=== PATIENT | male | born 1955 | race Asian ===

== ENCOUNTER 2017-01-01 18:28 | Inpatient (IN) | payer OTHER ==
[~2017-01-01] VITALS: Ht 160 cm; Wt 70.0 kg
[~2017-01-01 18:28] MED LIST: ACLI400A2 IH; ALBU8HFA4 IH; AMLO-511 PO; ASPI81 PO; ATOR20TA86 PO; BUDE10.2 IH; BUME1TAB30 PO; CALC-724 PO; CARV6 PO; DOCU250C91 PO; FAMO20 PO; FISH1CAP22 PO; FLUT16H NASAL; GLIP10 PO; ISOS30TA6 PO; LORA10TA7 PO; MELO-273 PO; METF500T4 PO; MONT10TA21 PO; MULT1TAB70 PO; OMEP20 PO; POTA8TAB4 PO; SACU1TAB PO; TAMS0.4C32 PO; VIT1CAPS21 PO
[2017-01-01 18:46] LABS: GLUCOSE,POINT OF CARE 172 MG/DL (70-110)
[2017-01-01] MEDS ORDERED: ENAL2.5 PO (19:20)
[2017-01-01 21:54] LABS: INFLUENZA TYPE B NEGATIVE FOR TYPE B (NEGATIVE)
[2017-01-01] MEDS ORDERED: IPRATROPIUM BROMIDE 0.5 MG/2.5 ML NEB SOLUTION NEB ONE (22:30)
[2017-01-01] MEDS ORDERED: ALBUTEROL SULFATE 2.5 MG/0.5 ML NEB SOLUTION NEB ONE (22:30)
[2017-01-01] MEDS ORDERED: ACETAMINOPHEN 500 MG TABLET PO ONE (22:30)
[2017-01-01 22:44] LABS: BASOPHILS # (AUTO) 0.06 K/uL (0.00-0.20); BASOPHILS % (AUTO) 0.8 % (0.0-2.0); EOSINOPHILS % (AUTO) 1.34 % (1.0-6.0); HEMATOCRIT 39.3 % (41-53); HEMOGLOBIN 13.1 g/dL (13.5-17.5); LYMPHOCYTES # (AUTO) 1.7 K/uL (1.0-4.8); LYMPHOCYTES % (AUTO) 23.6 % (22.0-44.0); MEAN CORPUSCULAR HEMOGLOBIN 29.6 pg (26.0-34.0); MEAN CORPUSCULAR HGB CONC 33.4 G/dL (31.0-37.0); MEAN CORPUSCULAR VOLUME 89 fL (80-100); MONOCYTES # (AUTO) 1.2 K/uL (0.1-1.0); NEUTROPHILS # (AUTO) 4.1 K/uL (1.8-7.7); NEUTROPHILS % (AUTO) 57.3 % (40.0-70.0); PLATELET COUNT (AUTO) 274 K/uL (150-450); RED BLOOD CELL COUNT(AUTO) 4.43 MIL/uL (4.50-5.90); RED CELL DISTRIBUTION WIDTH 14.6 % (11.5-14.5); WHITE BLOOD COUNT (AUTO) 7.2 K/uL (4.5-11.0)
[2017-01-01] MEDS ORDERED: 0.9% SODIUM CHLORIDE 15 ML NEB SOLUTION NEB ONE (22:47)
[2017-01-01] MEDS ORDERED: OSELTAMIVIR PHOSPHATE 75 MG CAPSULE PO ONE (23:00)
[2017-01-01] MEDS ORDERED: DEXTROSE 50%-WATER 25 GM/50 ML SYRINGE IVP PRN (23:00)
[2017-01-01] MEDS ORDERED: ACETAMINOPHEN 325 MG TABLET PO PRN (23:00)
[2017-01-01] MEDS ORDERED: MAGNESIUM HYDROXIDE SUSPENSION 30 ML UDCUP PO PRN (23:00)
[2017-01-01] MEDS ORDERED: OxyCODONE HCL/ACETAMINOPHEN 5-325 MG TABLET PO PRN (23:00)
[2017-01-01 23:09] LABS: B-TYPE NATRIURETIC PEPTIDE 156 pg/mL (0-100)
[2017-01-01] MEDS ORDERED: CefTRIAXone 1 GM/DEXTROSE 50 ML IV ONE (23:15)
[2017-01-01] MEDS ORDERED: AZITHROMYCIN 500 MG/NS 250 ML IV ONE (23:15)
[2017-01-01 23:19] LABS: ALANINE AMINOTRANSFERASE 17 U/L (12-78); ANION GAP 12 mmol/L (8-16); ASPARTATE AMINOTRANSFERASE 15 U/L (15-37); BILIRUBIN,TOTAL 0.3 mg/dL (0.1-1.0); CALCIUM, TOTAL 8.2 mg/dL (8.8-10.5); CARBON DIOXIDE 30 mmol/L (22-29); CHLORIDE 96 mmol/L (98-107); CREATINE KINASE MB 0.5 ng/mL (0-5); CREATINE KINASE, TOTAL 93 U/L (39-308); CREATININE 0.92 mg/dL (0.60-1.30); GLOMERULAR FILTR. RATE CALC > 60 mL/min (>60); SODIUM SERUM 138 mmol/L (136-145); UREA NITROGEN, BLOOD 10 mg/dL (7-18)
[2017-01-01 23:23] LABS: POTASSIUM 2.7 mmol/L (3.5-5.1)
[2017-01-02] VITALS (7 sets, daily range): BP systolic 115–143; BP diastolic 66–90
[2017-01-02] MEDS ORDERED: POTASSIUM CHLORIDE 20 MEQ ER TABLET PO ONE
[2017-01-02] MEDS: POTASSIUM CHL 10 MEQ/WATER 50 ML IV SCH ×3 (00:33→02:33)
[2017-01-02] MEDS: HEPARIN SODIUM,PORCINE 5,000 UNITS/ML VIAL SQ SCH ×3 (00:33→18:16)
[2017-01-02] MEDS ORDERED: SODIUM CHLORIDE 0.9% 1,000 ML IV ONE (00:47)
[2017-01-02] MEDS ORDERED: 0.9% SODIUM CHLORIDE 5 ML NEB SOLUTION NEB ONE ×3 (03:44→21:24)
[2017-01-02] MEDS: ALBUTEROL SULFATE 2.5 MG/0.5 ML NEB SOLUTION NEB PRN ×3 (03:46→21:32)
[2017-01-02] MEDS: INSULIN ASPART 100 UNITS/ML SQ PRN ×3 (05:51→18:15)
[2017-01-02] MEDS: DOCUSATE SODIUM 100 MG CAPSULE PO SCH ×2 (08:11→20:32)
[2017-01-02] MEDS: LISINOPRIL 5 MG TABLET PO SCH (08:12)
[2017-01-02] MEDS: PANTOPRAZOLE SODIUM 40 MG DR TABLET PO SCH (08:12)
[2017-01-02] MEDS: OSELTAMIVIR PHOSPHATE 75 MG CAPSULE PO SCH ×2 (08:12→20:33)
[2017-01-02] MEDS: CARVEDILOL 6.25 MG TABLET PO SCH ×2 (08:12→20:32)
[2017-01-02] MEDS: ASPIRIN 81 MG CHEWABLE TABLET PO SCH (08:12)
[2017-01-02 13:46] LABS: ANION GAP 10 mmol/L (8-16); CALCIUM, TOTAL 8.1 mg/dL (8.8-10.5); CARBON DIOXIDE 26 mmol/L (22-29); CHLORIDE 101 mmol/L (98-107); CREATININE 0.97 mg/dL (0.60-1.30); GLOMERULAR FILTR. RATE CALC > 60 mL/min (>60); POTASSIUM 3.1 mmol/L (3.5-5.1); SODIUM SERUM 137 mmol/L (136-145); UREA NITROGEN, BLOOD 11 mg/dL (7-18)
[2017-01-02 17:55] LABS: BASOPHILS # (AUTO) 0.03 K/uL (0.00-0.20); BASOPHILS % (AUTO) 0.6 % (0.0-2.0); EOSINOPHILS # (AUTO) 0.27 K/uL (0.00-0.70); EOSINOPHILS % (AUTO) 5.98 % (1.0-6.0); HEMATOCRIT 39.2 % (41-53); HEMOGLOBIN 13.1 g/dL (13.5-17.5); LYMPHOCYTES # (AUTO) 1.7 K/uL (1.0-4.8); LYMPHOCYTES % (AUTO) 38.3 % (22.0-44.0); MEAN CORPUSCULAR HEMOGLOBIN 29.5 pg (26.0-34.0); MEAN CORPUSCULAR HGB CONC 33.3 G/dL (31.0-37.0); MEAN CORPUSCULAR VOLUME 89 fL (80-100); MONOCYTES # (AUTO) 0.8 K/uL (0.1-1.0); NEUTROPHILS # (AUTO) 1.7 K/uL (1.8-7.7); NEUTROPHILS % (AUTO) 37.1 % (40.0-70.0); PLATELET COUNT (AUTO) 270 K/uL (150-450); RED BLOOD CELL COUNT(AUTO) 4.43 MIL/uL (4.50-5.90); RED CELL DISTRIBUTION WIDTH 14.3 % (11.5-14.5); WHITE BLOOD COUNT (AUTO) 4.5 K/uL (4.5-11.0)
[2017-01-02 18:05] LABS: ANION GAP 6 mmol/L (8-16); CALCIUM, TOTAL 8.7 mg/dL (8.8-10.5); CARBON DIOXIDE 31 mmol/L (22-29); CHLORIDE 101 mmol/L (98-107); CREATININE 0.92 mg/dL (0.60-1.30); GLOMERULAR FILTR. RATE CALC > 60 mL/min (>60); POTASSIUM 3.6 mmol/L (3.5-5.1); SODIUM SERUM 138 mmol/L (136-145); UREA NITROGEN, BLOOD 11 mg/dL (7-18)
[2017-01-02 18:10] LABS: ALANINE AMINOTRANSFERASE 19 U/L (12-78); ALBUMIN 3.5 g/dL (3.4-5.0); ASPARTATE AMINOTRANSFERASE 18 U/L (15-37); BILIRUBIN,TOTAL 0.3 mg/dL (0.1-1.0); TOTAL PROTEIN, SERUM 7.2 g/dL (6.4-8.2)
[2017-01-02] MEDS: ATORVASTATIN CALCIUM 20 MG TABLET PO SCH (20:35)
[2017-01-03] MEDS: CefTRIAXone 1 GM/DEXTROSE 50 ML IV SCH ×2 (00:19→23:58)
[2017-01-03 05:16] VITALS: BP 107/74
[2017-01-03 07:32] LABS: BASOPHILS % (AUTO) 0.9 % (0.0-2.0); EOSINOPHILS % (AUTO) 8.6 % (1.0-6.0); HEMATOCRIT 39.6 % (41-53); HEMOGLOBIN 12.9 g/dL (13.5-17.5); LYMPHOCYTES # (AUTO) 1.8 K/uL (1.0-4.8); LYMPHOCYTES % (AUTO) 41.2 % (22.0-44.0); MEAN CORPUSCULAR HEMOGLOBIN 29.3 pg (26.0-34.0); MEAN CORPUSCULAR HGB CONC 32.7 G/dL (31.0-37.0); MEAN CORPUSCULAR VOLUME 90 fL (80-100); MONOCYTES # (AUTO) 0.6 K/uL (0.1-1.0); MONOCYTES % (AUTO) 13.8 % (2.0-9.0); NEUTROPHILS # (AUTO) 1.5 K/uL (1.8-7.7); NEUTROPHILS % (AUTO) 35.5 % (40.0-70.0); PLATELET COUNT (AUTO) 269 K/uL (150-450); RED BLOOD CELL COUNT(AUTO) 4.42 MIL/uL (4.50-5.90); RED CELL DISTRIBUTION WIDTH 14.1 % (11.5-14.5); WHITE BLOOD COUNT (AUTO) 4.3 K/uL (4.5-11.0)
[2017-01-03 07:38] VITALS: BP 107/69
[2017-01-03 08:07] LABS: ALANINE AMINOTRANSFERASE 17 U/L (12-78); ALBUMIN 3.5 g/dL (3.4-5.0); ANION GAP 11 mmol/L (8-16); ASPARTATE AMINOTRANSFERASE 18 U/L (15-37); BILIRUBIN,TOTAL 0.3 mg/dL (0.1-1.0); CALCIUM, TOTAL 8.7 mg/dL (8.8-10.5); CARBON DIOXIDE 27 mmol/L (22-29); CHLORIDE 102 mmol/L (98-107); CREATININE 0.87 mg/dL (0.60-1.30); GLOMERULAR FILTR. RATE CALC > 60 mL/min (>60); SODIUM SERUM 140 mmol/L (136-145); TOTAL PROTEIN, SERUM 7.3 g/dL (6.4-8.2); UREA NITROGEN, BLOOD 10 mg/dL (7-18)
[2017-01-03] MEDS: DOCUSATE SODIUM 100 MG CAPSULE PO SCH ×2 (08:08→20:41)
[2017-01-03] MEDS: AZITHROMYCIN 500 MG/NS 250 ML IV SCH (08:08)
[2017-01-03] MEDS: HEPARIN SODIUM,PORCINE 5,000 UNITS/ML VIAL SQ SCH ×4 (08:08→23:58)
[2017-01-03] MEDS: PANTOPRAZOLE SODIUM 40 MG DR TABLET PO SCH (08:08)
[2017-01-03] MEDS: OSELTAMIVIR PHOSPHATE 75 MG CAPSULE PO SCH ×2 (08:08→20:41)
[2017-01-03] MEDS: ASPIRIN 81 MG CHEWABLE TABLET PO SCH (08:08)
[2017-01-03] MEDS: LISINOPRIL 5 MG TABLET PO SCH (08:15)
[2017-01-03] MEDS: CARVEDILOL 6.25 MG TABLET PO SCH ×2 (08:15→20:41)
[2017-01-03] MEDS: POTASSIUM CHLORIDE 20 MEQ ER TABLET PO PRN (08:31)
[2017-01-03 11:47] VITALS: BP 118/61
[2017-01-03] MEDS: INSULIN ASPART 100 UNITS/ML SQ PRN ×2 (12:11→17:58)
[2017-01-03 15:21] VITALS: BP 132/72
[2017-01-03 17:36] LABS: GLUCOSE,POINT OF CARE 156 MG/DL (70-110)
[2017-01-03 19:41] VITALS: BP 126/83
[2017-01-03] MEDS: ATORVASTATIN CALCIUM 20 MG TABLET PO SCH (20:41)
[2017-01-04 00:08] VITALS: BP 126/76
[2017-01-04 04:46] VITALS: BP 158/112
[2017-01-04] MEDS: INSULIN ASPART 100 UNITS/ML SQ PRN ×2 (05:57→12:03)
[2017-01-04 06:26] LABS: BASOPHILS # (AUTO) 0.04 K/uL (0.00-0.20); BASOPHILS % (AUTO) 0.7 % (0.0-2.0); EOSINOPHILS # (AUTO) 0.47 K/uL (0.00-0.70); EOSINOPHILS % (AUTO) 8.36 % (1.0-6.0); HEMATOCRIT 38.3 % (41-53); HEMOGLOBIN 12.9 g/dL (13.5-17.5); LYMPHOCYTES # (AUTO) 2.3 K/uL (1.0-4.8); LYMPHOCYTES % (AUTO) 39.9 % (22.0-44.0); MEAN CORPUSCULAR HEMOGLOBIN 29.7 pg (26.0-34.0); MEAN CORPUSCULAR HGB CONC 33.6 G/dL (31.0-37.0); MEAN CORPUSCULAR VOLUME 88 fL (80-100); MONOCYTES # (AUTO) 0.5 K/uL (0.1-1.0); MONOCYTES % (AUTO) 8.7 % (2.0-9.0); NEUTROPHILS # (AUTO) 2.4 K/uL (1.8-7.7); NEUTROPHILS % (AUTO) 42.3 % (40.0-70.0); PLATELET COUNT (AUTO) 282 K/uL (150-450); RED BLOOD CELL COUNT(AUTO) 4.35 MIL/uL (4.50-5.90); RED CELL DISTRIBUTION WIDTH 13.7 % (11.5-14.5); WHITE BLOOD COUNT (AUTO) 5.7 K/uL (4.5-11.0)
[2017-01-04 06:57] LABS: ALANINE AMINOTRANSFERASE 19 U/L (12-78); ALBUMIN 3.5 g/dL (3.4-5.0); ANION GAP 14 mmol/L (8-16); ASPARTATE AMINOTRANSFERASE 13 U/L (15-37); BILIRUBIN,TOTAL 0.2 mg/dL (0.1-1.0); CALCIUM, TOTAL 8.7 mg/dL (8.8-10.5); CARBON DIOXIDE 23 mmol/L (22-29); CHLORIDE 104 mmol/L (98-107); CREATININE 0.75 mg/dL (0.60-1.30); GLOMERULAR FILTR. RATE CALC > 60 mL/min (>60); POTASSIUM 3.1 mmol/L (3.5-5.1); SODIUM SERUM 141 mmol/L (136-145); TOTAL PROTEIN, SERUM 7.2 g/dL (6.4-8.2); UREA NITROGEN, BLOOD 14 mg/dL (7-18)
[2017-01-04 07:40] VITALS: BP 130/88
[2017-01-04] MEDS: DOCUSATE SODIUM 100 MG CAPSULE PO SCH (08:05)
[2017-01-04] MEDS: PANTOPRAZOLE SODIUM 40 MG DR TABLET PO SCH (08:05)
[2017-01-04] MEDS: LISINOPRIL 5 MG TABLET PO SCH (08:05)
[2017-01-04] MEDS: CARVEDILOL 6.25 MG TABLET PO SCH (08:05)
[2017-01-04] MEDS: POTASSIUM CHLORIDE 20 MEQ ER TABLET PO PRN (08:05)
[2017-01-04] MEDS: ASPIRIN 81 MG CHEWABLE TABLET PO SCH (08:05)
[2017-01-04] MEDS: HEPARIN SODIUM,PORCINE 5,000 UNITS/ML VIAL SQ SCH ×2 (08:07→15:47)
[2017-01-04] MEDS: OSELTAMIVIR PHOSPHATE 75 MG CAPSULE PO SCH (08:07)
[2017-01-04] MEDS: AZITHROMYCIN 500 MG/NS 250 ML IV SCH (08:08)
[2017-01-04 11:31] VITALS: BP 126/86
[2017-01-04 15:29] VITALS: BP 129/84
[2017-01-04] MEDS ORDERED: OSEL75 PO (18:28)
[2017-01-04] MEDS ORDERED: AMOX1TAB16 PO (18:33)
[2017-01-04] MEDS ORDERED: GUAIF10 PO (18:39)
[2017-01-04 20:01] LABS: GLUCOSE,POINT OF CARE 147 MG/DL (70-110)
[2017-01-04 20:01] LABS: GLUCOSE COMMENT 1 Received Meds; GLUCOSE,POINT OF CARE 160 MG/DL (70-110)
[2017-01-04 20:06] LABS: GLUCOSE COMMENT 1 Received Meds; GLUCOSE,POINT OF CARE 182 MG/DL (70-110)
[2017-01-04 20:06] LABS: GLUCOSE,POINT OF CARE 169 MG/DL (70-110)
[2017-01-04 20:06] LABS: GLUCOSE,POINT OF CARE 154 MG/DL (70-110)
[2017-01-04 20:06] LABS: GLUCOSE COMMENT 1 Received Meds; GLUCOSE,POINT OF CARE 216 MG/DL (70-110)
[2017-01-04 20:07] LABS: GLUCOSE COMMENT 1 Received Meds; GLUCOSE,POINT OF CARE 176 MG/DL (70-110)
[2017-01-04 20:07] LABS: GLUCOSE COMMENT 1 Received Meds; GLUCOSE,POINT OF CARE 147 MG/DL (70-110)
[2017-01-04 20:07] LABS: GLUCOSE,POINT OF CARE 139 MG/DL (70-110)
[2017-01-04 20:07] LABS: GLUCOSE,POINT OF CARE 184 MG/DL (70-110)
== END 2017-01-04 19:00 | disposition home or self-care (01) | DRG 190 ==
LOC: EMS 18:32 → 5N 01-02 00:23
PROVIDERS: ADMIT Internal Medicine; ATTEND Internal Medicine
DX: J44.0 Chronic obstructive pulmonary disease with (acute) lower respiratory infection (principal); J11.00 Influenza due to unidentified influenza virus with unspecified type of pneumonia; J18.9 Pneumonia, unspecified organism; I49.5 Sick sinus syndrome; E11.9 Type 2 diabetes mellitus without complications; I25.10 Atherosclerotic heart disease of native coronary artery without angina pectoris; E87.6 Hypokalemia; G47.30 Sleep apnea, unspecified; I48.91 Unspecified atrial fibrillation; F41.9 Anxiety disorder, unspecified; I11.0 Hypertensive heart disease with heart failure; I50.9 Heart failure, unspecified; K21.9 Gastro-esophageal reflux disease without esophagitis; Z79.4 Long term (current) use of insulin; Z95.1 Presence of aortocoronary bypass graft; Z95.810 Presence of automatic (implantable) cardiac defibrillator; Z79.899 Other long term (current) drug therapy; Z79.82 Long term (current) use of aspirin; Z87.19 Personal history of other diseases of the digestive system; J11.1 Influenza due to unidentified influenza virus with other respiratory manifestations
CPT/HCPCS: 82962; 84132; 87040; 87804; 93005; 94640; 96365; 96367; 99285; J0456; J0696; J1644; J3480; J7030

== ENCOUNTER 2017-08-17 19:07 | Emergency (ER) | payer OTHER, MEDICARE ==
[~2017-08-17] VITALS: Ht 161.3 cm; Wt 75.0 kg
[~2017-08-17 19:07] MED LIST changes: +AMOX1TAB16 PO; +BUME1TAB17 PO; -BUME1TAB30 PO; -CALC-724 PO; +GUAIF10 PO; -LORA10TA7 PO; +MELO-107 PO; -MELO-273 PO; -MULT1TAB70 PO; +OSEL75 PO; -VIT1CAPS21 PO
[2017-08-17] MEDS ORDERED: RANI150T7 PO (19:20)
[2017-08-17] MEDS ORDERED: METF10002 PO (19:20)
[2017-08-17] MEDS ORDERED: ISOS20TA9 PO (19:20)
[2017-08-17] MEDS ORDERED: PRED10 PO (19:20)
[2017-08-17] MEDS ORDERED: CARV12.530 PO (19:20)
[2017-08-17] MEDS ORDERED: ATOR20TA65 PO (19:20)
[2017-08-17 19:22] LABS: GLUCOSE,POINT OF CARE 241 MG/DL (70-110)
[2017-08-17 19:33] LABS: BASOPHILS % (AUTO) 0.7 % (0.0-2.0); EOSINOPHILS % (AUTO) 2.3 % (1.0-6.0); HEMOGLOBIN 14.3 g/dL (13.5-17.5); LYMPHOCYTES # (AUTO) 2.6 K/uL (1.0-4.8); LYMPHOCYTES % (AUTO) 31.3 % (22.0-44.0); MEAN CORPUSCULAR HEMOGLOBIN 31.4 pg (26.0-34.0); MEAN CORPUSCULAR HGB CONC 34.9 G/dL (31.0-37.0); MEAN CORPUSCULAR VOLUME 90 fL (80-100); MONOCYTES # (AUTO) 0.8 K/uL (0.1-1.0); MONOCYTES % (AUTO) 9.1 % (2.0-9.0); NEUTROPHILS # (AUTO) 4.8 K/uL (1.8-7.7); NEUTROPHILS % (AUTO) 56.6 % (40.0-70.0); PLATELET COUNT (AUTO) 264 K/uL (150-450); RED BLOOD CELL COUNT(AUTO) 4.55 MIL/uL (4.50-5.90); RED CELL DISTRIBUTION WIDTH 13.6 % (11.5-14.5); WHITE BLOOD COUNT (AUTO) 8.4 K/uL (4.5-11.0)
[2017-08-17 19:46] LABS: PROTHROMBIN TIME 10.4 SEC (9.4-11.6)
[2017-08-17 19:54] LABS: B-TYPE NATRIURETIC PEPTIDE 218 pg/mL (0-100)
[2017-08-17 20:25] LABS: ALANINE AMINOTRANSFERASE 24 U/L (12-78); ALBUMIN 4.2 g/dL (3.4-5.0); ANION GAP 15 mmol/L (8-16); ASPARTATE AMINOTRANSFERASE 12 U/L (15-37); BILIRUBIN,TOTAL 0.5 mg/dL (0.1-1.0); CALCIUM, TOTAL 9.1 mg/dL (8.8-10.5); CARBON DIOXIDE 25 mmol/L (22-29); CHLORIDE 97 mmol/L (98-107); CREATINE KINASE MB 1.5 ng/mL (0-5); CREATINE KINASE, TOTAL 80 U/L (39-308); CREATININE 1.31 mg/dL (0.60-1.30); GLOMERULAR FILTR. RATE CALC 56 mL/min (>60); SODIUM SERUM 137 mmol/L (136-145); UREA NITROGEN, BLOOD 22 mg/dL (7-18)
[2017-08-17 20:27] LABS: APPEARANCE,URINE CLEAR (CLEAR); GLUCOSE, URINE (UA) NEGATIVE (NEGATIVE); KETONES,URINE NEGATIVE (NEGATIVE); LEUKOCYTE ESTERASE ,URINE NEGATIVE (NEGATIVE); OCCULT BLOOD,URINE NEGATIVE (NEGATIVE); PROTEIN,URINE NEGATIVE (NEGATIVE)
[2017-08-17 20:28] LABS: ADD UA MICROSCOPIC NO
[2017-08-17] MEDS ORDERED: ASPIRIN 81 MG CHEWABLE TABLET PO ONE (21:15)
[2017-08-17 23:47] VITALS: BP 135/72
== END 2017-08-17 23:50 | disposition short-term general hospital (02) ==
LOC: EMS 19:12
DX: I20.9 Angina pectoris, unspecified (principal); I10 Essential (primary) hypertension; K21.9 Gastro-esophageal reflux disease without esophagitis; J44.9 Chronic obstructive pulmonary disease, unspecified; F41.9 Anxiety disorder, unspecified; I25.10 Atherosclerotic heart disease of native coronary artery without angina pectoris; I48.91 Unspecified atrial fibrillation
CPT/HCPCS: 82962; 93005; 99285

== ENCOUNTER 2019-12-25 06:33 | Day surgery (SDC) | payer OTHER ==
[~2019-12-25] VITALS: Ht 160 cm; Wt 71.4 kg
[~2019-12-25 06:33] MED LIST changes: -ACLI400A2 IH; +ACLI400A3 IH; -AMLO-511 PO; +AMLO5TAB9 PO; +ASPI-728 PO; -ASPI81 PO; +ATOR20TA65 PO; -BUME1TAB17 PO; +BUME1TAB34 PO; +CARV12.530 PO; +DOCU-342 PO; -DOCU250C91 PO; +ISOS20TA9 PO; +METF-446 PO; +METF-960 PO; -METF500T4 PO; +PRED10 PO; +RANI150T7 PO; +SODIUM CHLORIDE 0.9% 1,000 ML IV ONE; +SODIUM CHLORIDE 0.9% 1,000 ML ONE; +TAMS-13 PO; -TAMS0.4C32 PO
[2019-12-25] MEDS ORDERED: LIDOCAINE 4% 50 ML SOLUTION TP ONE (06:34)
[2019-12-25] MEDS ORDERED: LIDOCAINE 2% 30 ML JELLY TP ONE (06:34)
[2019-12-25] MEDS ORDERED: BENZOCAINE 20% 50 MCG/SPRAY 57 GM TP ONE (06:34)
[2019-12-25] MEDS ORDERED: ALBUTEROL SULFATE 2.5 MG/0.5 ML NEB SOLUTION NEB ONE (06:34)
[2019-12-25] MEDS ORDERED: FentaNYL CITRATE-PF 100 MCG/2 ML VIAL ONE (07:03)
[2019-12-25] MEDS ORDERED: MIDAZOLAM HCL 2 MG/2 ML VIAL ONE (07:03)
[2019-12-25] MEDS ORDERED: MethylPREDNISolone SOD SUCC 125 MG/2 ML VIAL ONE (07:25)
[2019-12-25] MEDS ORDERED: QUIN10 PO (07:35)
[2019-12-25 07:37] LABS: GLUCOMETER DEV NAME(LOC) SDS.; GLUCOSE,POINT OF CARE 155 MG/DL (70-110)
[2019-12-25] MEDS ORDERED: OXYGEN THERAPY IH SCH (08:00)
[2019-12-25] MEDS ORDERED: MethylPREDNISolone SOD SUCC 125 MG/2 ML VIAL IVP ONE (08:00)
== END 2019-12-25 10:15 | disposition home or self-care (01) ==
LOC: SURGERY 06:33
PROVIDERS: ATTEND Internal Medicine Critical Care Medicine
DX: R05 Cough (principal); J34.89 Other specified disorders of nose and nasal sinuses; J98.8 Other specified respiratory disorders; J38.4 Edema of larynx; B37.0 Candidal stomatitis; Z79.899 Other long term (current) drug therapy
CPT/HCPCS: 31623; 31624; 71045; 82962; 87070; 87101; 87206; 87220; 93005; J2250; J2930; J3010; J7030; 87015; 87205; 88108; 88312

== ENCOUNTER 2021-04-28 06:34 | Day surgery (SDC) | payer OTHER ==
[2021-04-25 10:09] LABS: COVID AG,FIA SOURCE NASOPHARYNGEAL
[~2021-04-28] VITALS: Ht 160 cm; Wt 73.6 kg
[~2021-04-28 06:34] MED LIST changes: +AMLO-257 PO; -AMLO5TAB9 PO; +ASPI-1450 PO; -ASPI-728 PO; -DOCU-342 PO; +DOCU-350 PO; -ISOS30TA6 PO; +ISOS30TA92 PO; +MONT-35 PO; -MONT10TA21 PO; +QUIN10 PO
[2021-04-28] MEDS ORDERED: MIDAZOLAM HCL 2 MG/2 ML VIAL ONE (07:48)
[2021-04-28] MEDS ORDERED: FentaNYL CITRATE PF 100 MCG/2 ML VIAL ONE (07:48)
[2021-04-28] MEDS ORDERED: MethylPREDNISolone SOD SUCC 125 MG/2 ML VIAL IVP ONE (09:00)
[2021-04-28] MEDS ORDERED: BENZOCAINE 20% 50 MCG/SPRAY 57 GM ONE (16:23)
[2021-04-28] MEDS ORDERED: ALBUTEROL SULFATE 2.5 MG/0.5 ML NEB SOLUTION NEB ONE (16:23)
[2021-04-28] MEDS ORDERED: LIDOCAINE 2% 30 ML JELLY ONE (16:23)
[2021-04-28] MEDS ORDERED: OXYGEN THERAPY IH SCH (20:00)
== END 2021-04-28 10:25 | disposition home or self-care (01) ==
LOC: SURGERY 06:34
PROVIDERS: ATTEND Internal Medicine Critical Care Medicine
DX: J38.4 Edema of larynx (principal); B37.0 Candidal stomatitis; I10 Essential (primary) hypertension; I25.2 Old myocardial infarction; J44.9 Chronic obstructive pulmonary disease, unspecified; E78.00 Pure hypercholesterolemia, unspecified; Z98.890 Other specified postprocedural states; Z87.891 Personal history of nicotine dependence; Z98.42 Cataract extraction status, left eye; Z98.41 Cataract extraction status, right eye; Z86.73 Personal history of transient ischemic attack (TIA), and cerebral infarction without residual deficits; Z85.46 Personal history of malignant neoplasm of prostate
CPT/HCPCS: 31623; 31624; 71045; 87015; 87070; 87077; 87101; 87186; 87205; 87206; 87220; 87426; 88108; 88184; 88185; 88312; 93005; C9803; J2250; J3010; J7030; J7613

== ENCOUNTER 2023-02-01 08:37 | Emergency (ER) | payer OTHER ==
[~2023-02-01] VITALS: Ht 162.6 cm; Wt 72.7 kg
[~2023-02-01 08:37] MED LIST changes: +ACLI400A2 IH; -ACLI400A3 IH; -FLUT16H NASAL; +FLUT16SP NASAL; -GLIP10 PO; +GLIP10TA10 PO; -MELO-107 PO; +MELO-381 PO; +METF-1211 PO; -METF-960 PO; -POTA8TAB4 PO; +PRED-729 PO; -PRED10 PO; +SLOWK8 PO; -SODIUM CHLORIDE 0.9% 1,000 ML IV ONE; -SODIUM CHLORIDE 0.9% 1,000 ML ONE
[2023-02-01] MEDS ORDERED: LIDOCAINE 1% 10 ML VIAL SQ ONE (10:15)
[2023-02-01 11:05] VITALS: BP 148/81
== END 2023-02-01 11:21 | disposition home or self-care (01) ==
LOC: EMS 08:44
DX: S61.210A Laceration without foreign body of right index finger without damage to nail, initial encounter (principal); I48.91 Unspecified atrial fibrillation; F41.9 Anxiety disorder, unspecified; I25.10 Atherosclerotic heart disease of native coronary artery without angina pectoris; I11.0 Hypertensive heart disease with heart failure; J44.9 Chronic obstructive pulmonary disease, unspecified; Z98.890 Other specified postprocedural states; X58.XXXA Exposure to other specified factors, initial encounter; Y93.89 Activity, other specified; Y92.89 Other specified places as the place of occurrence of the external cause; Y99.8 Other external cause status
CPT/HCPCS: 99282; 12001; J3490

== ENCOUNTER 2023-02-10 09:55 | Emergency (ER) | payer OTHER, MEDICAID ==
[~2023-02-10] VITALS: Ht 162.6 cm; Wt 72.7 kg
[~2023-02-10 09:55] MED LIST changes: -AMLO-257 PO; -AMOX1TAB16 PO; -ATOR20TA86 PO; -BUME1TAB34 PO; -CARV6 PO; -GLIP10TA10 PO; -GUAIF10 PO; -ISOS20TA9 PO; -ISOS30TA92 PO; -MELO-381 PO; -METF-1211 PO; -OSEL75 PO; -QUIN10 PO; -RANI150T7 PO; -SACU1TAB PO; -SLOWK8 PO; -TAMS-13 PO
[2023-02-10 10:19] VITALS: BP 142/93
[2023-02-10] MEDS ORDERED: CARV6.2534 PO (10:22)
[2023-02-10] MEDS ORDERED: ATOR40TA28 PO (10:22)
[2023-02-10] MEDS ORDERED: METF-1211 PO (10:22)
[2023-02-10] MEDS ORDERED: LOSA-382 PO (10:22)
== END 2023-02-10 12:22 | disposition home or self-care (01) ==
LOC: EMS 10:10
DX: S61.210D Laceration without foreign body of right index finger without damage to nail, subsequent encounter (principal); I48.91 Unspecified atrial fibrillation; F41.9 Anxiety disorder, unspecified; I25.10 Atherosclerotic heart disease of native coronary artery without angina pectoris; I11.0 Hypertensive heart disease with heart failure; J44.9 Chronic obstructive pulmonary disease, unspecified; Z98.890 Other specified postprocedural states; Z48.02 Encounter for removal of sutures; X58.XXXD Exposure to other specified factors, subsequent encounter
CPT/HCPCS: 82962; 99282

== ENCOUNTER 2024-01-30 21:21 | Emergency (ER) | payer MEDICARE, MEDICAID ==
[~2024-01-30] VITALS: Ht 160 cm; Wt 73.0 kg
[~2024-01-30 21:21] MED LIST changes: -ACLI400A2 IH; -ATOR20TA65 PO; +ATOR40TA28 PO; -BUDE10.2 IH; -CARV12.530 PO; +CARV6.2534 PO; -DOCU-350 PO; +LOSA-382 PO; +METF-1211 PO; -METF-446 PO
[2024-01-30 22:00] LABS: BASOPHILS % (AUTO) 0.5 % (0.0-2.0); HEMATOCRIT 38.8 % (41-53); HEMOGLOBIN 13.1 g/dL (13.5-17.5); LYMPHOCYTES # (AUTO) 1.7 K/uL (1.0-4.8); LYMPHOCYTES % (AUTO) 14.7 % (22.0-44.0); MEAN CORPUSCULAR HEMOGLOBIN 30.3 pg (26.0-34.0); MEAN CORPUSCULAR HGB CONC 33.7 G/dL (31.0-37.0); MEAN CORPUSCULAR VOLUME 90 fL (80-100); MONOCYTES # (AUTO) 1.2 K/uL (0.1-1.0); MONOCYTES % (AUTO) 10.3 % (2.0-9.0); NEUTROPHILS # (AUTO) 8.3 K/uL (1.8-7.7); NEUTROPHILS % (AUTO) 73.5 % (40.0-70.0); PLATELET COUNT (AUTO) 399 K/uL (150-450); RED BLOOD CELL COUNT(AUTO) 4.31 MIL/uL (4.50-5.90); RED CELL DISTRIBUTION WIDTH 13.8 % (11.5-14.5); WHITE BLOOD COUNT (AUTO) 11.2 K/uL (4.5-11.0)
[2024-01-30 22:10] LABS: ANION GAP 12 mmol/L (8-16); CALCIUM, TOTAL 10.2 mg/dL (8.8-10.5); CARBON DIOXIDE 22 mmol/L (22-29); CHLORIDE 99 mmol/L (98-107); GLOMERULAR FILTR. RATE CALC > 60 mL/min (>60); GLUCOSE,RANDOM 143 mg/dL (70-110); POTASSIUM 3.7 mmol/L (3.5-5.1); SODIUM SERUM 133 mmol/L (136-145); UREA NITROGEN, BLOOD 22 mg/dL (7-18)
[2024-01-30 22:17] LABS: ALANINE AMINOTRANSFERASE 19 U/L (12-78); ALBUMIN 3.5 g/dL (3.4-5.0); ALKALINE PHOSPHATASE 120 U/L (46-116); ASPARTATE AMINOTRANSFERASE 17 U/L (15-37); BILIRUBIN,TOTAL 0.7 mg/dL (0.1-1.0); CREATINE KINASE, TOTAL ONLY 59 U/L (39-308); TOTAL PROTEIN, SERUM 8.5 g/dL (6.4-8.2); TROPONIN I-HIGH SENSITIVITY 49 ng/L (<76)
[2024-01-30 22:23] LABS: B-TYPE NATRIURETIC PEPTIDE 206 pg/mL (0-100)
[2024-01-30] MEDS: MethylPREDNISolone SOD SUCC 125 MG/2 ML VIAL IVP ONE (23:38)
[2024-01-30] MEDS: IPRATROPIUM BROMIDE 0.5 MG/2.5 ML NEB SOLUTION NEB ONE (23:46)
[2024-01-30] MEDS: ALBUTEROL SULFATE 2.5 MG/0.5 ML NEB SOLUTION NEB ONE (23:47)
[2024-01-30 23:55] VITALS: PULSE 100; RESP 20; O2SAT 91
[2024-01-30] MEDS: HYDROCODONE/ACETAMINOPHEN 5-325 MG TABLET PO ONE (23:59)
[2024-01-31 00:10] VITALS: PULSE 95; RESP 20; O2SAT 94
[2024-01-31 00:21] LABS: COVID AG,FIA SOURCE NASAL SWAB
[2024-01-31 00:48] LABS: SARS-COV2 (COVID) ANTIGEN,FIA Negative (Negative)
[2024-01-31 01:10] VITALS: BP 126/72; PULSE 100; RESP 22; TEMP 98.1
== END 2024-01-31 02:45 | disposition short-term general hospital (02) ==
LOC: EMS 21:21
DX: J44.1 Chronic obstructive pulmonary disease with (acute) exacerbation (principal); R09.02 Hypoxemia; R22.1 Localized swelling, mass and lump, neck; F41.9 Anxiety disorder, unspecified; E11.9 Type 2 diabetes mellitus without complications; I25.10 Atherosclerotic heart disease of native coronary artery without angina pectoris; I13.0 Hypertensive heart and chronic kidney disease with heart failure and stage 1 through stage 4 chronic kidney disease, or unspecified chronic kidney disease; N18.9 Chronic kidney disease, unspecified; Z98.890 Other specified postprocedural states; Z20.822 Contact with and (suspected) exposure to COVID-19
CPT/HCPCS: 99285; 96374; 71045; 87426; 80053; 82550; 83880; 84484; 85025; 36415; 94640; 93005; J2930; J7613